=== PATIENT | female | born 1995 | race Caucasian/White ===

== ENCOUNTER 2016-06-29 16:57 | Emergency (ER) | payer OTHER ==
[~2016-06-29] VITALS: Ht 170.2 cm; Wt 58.8 kg
[2016-06-29 17:19] VITALS: TEMP 36.9; Ht 170.2 cm; Wt 58.8 kg
[2016-06-29] MEDS ORDERED: POLY335019 PO (17:53)
[2016-06-29] MEDS ORDERED: LISD60CA PO (17:53)
[2016-06-29] MEDS ORDERED: VENL75CA PO (17:53)
--- NOTE | 2016-06-29 18:03 | EMERGENCY ROOM VISIT NOTE ---
ED Visit Note First contact with patient: 17:41 CHIEF COMPLAINT: Canyon rash on hand HISTORY OF PRESENT ILLNESS: This 20-year-old female patient presents to the emergency department ambulatory complaining of a rust colored rash on her left palm. The patient states that this morning after an education class, she was walking to her next class and noticed an orange rash on her left hand. She states that she initially tried to wash the hand but this did not resolve it. She reports some burning in the area, but denies any true pain. She denies any itching. She denies any new medications or environmental exposures. She states that she researched this online and is concerned about liver failure. REVIEW OF SYSTEMS: A review of systems was performed with positives and pertinent negatives listed in the history of present illness. All other systems were reviewed and are negative. ALLERGIES: Metoclopramide MEDICATIONS: Vyvanse, Effexor, MiraLAX PMH: No significant past medical history. SOCIAL HISTORY: The patient is a [employer] student and lives locally with roommates. PHYSICAL EXAM: VITALS: Vitals are noted on the nurse's note and reviewed by myself. Vital signs stable. GENERAL: His is a 20-year-old female, in no acute distress, nondiaphoretic, well -developed well-nourished. SKIN: There is a small amount of faint orange coloring on the medial aspect of the left palm. EMERGENCY DEPARTMENT COURSE: The patient was evaluated as above. The Canyon area in color was removed easily with an alcohol pad. The patient was reassured. She was discharged home in good condition. DIAGNOSIS: Marker on hand Current/Historical Medications Scheduled Lisdexamfetamine Dimesylate (Vyvanse), 60 MG PO DAILY Polyethylene Glycol 3350 (Miralax), 17 GM PO DAILY Venlafaxine Hcl (Effexor Xr), 225 MG PO DAILY Allergies Coded Allergies: Metoclopramide (Unverified Adverse Reaction, Severe, HIVES, 06/29/16) Vital Signs Date Time Temp Pulse Resp B/P Pulse Ox O2 Delivery O2 Flow Rate FiO2 06/29/16 18:06 71 16 123/64 99 Room Air 06/29/16 17:19 36.9 117 16 124/80 98 Departure Information Impression Primary Impression: Discoloration of skin of hand Dispostion Home / Self-Care Condition GOOD Referrals No Doctor, Assigned (PCP) Patient Instructions My [facility] Additional Instructions Follow-up with [facility] for any further concerns.
[2016-06-29 18:06] VITALS: BP 123/64; PULSE 71; O2SAT 99
== END 2016-06-29 18:09 | disposition home or self-care (01) ==
LOC: C.EDB 16:59 → C.EDD 18:09
DX: R23.8 Other skin changes (principal); Z79.899 Other long term (current) drug therapy

== ENCOUNTER 2017-06-25 17:06 | Emergency (ER) | payer OTHER ==
[~2017-06-25] VITALS: Ht 170.2 cm; Wt 81.2 kg
[~2017-06-25 17:06] MED LIST: LISD60CA PO; POLY335019 PO; VENL75CA PO
[2017-06-25 17:08] VITALS: TEMP 36.4; Ht 170.2 cm; Wt 81.2 kg
[2017-06-25] MEDS ORDERED: DULO60CA44 PO (17:44)
[2017-06-25] MEDS ORDERED: STR/80 PO (17:44)
[2017-06-25] MEDS ORDERED: CYM/30 PO (17:44)
[2017-06-25] MEDS ORDERED: DIAZ10TA PO (17:44)
[2017-06-25 17:47] VITALS: O2SAT 100
[2017-06-25 17:50] LABS: BASO % 0.2 %; BASO ABS # 0.01 K/uL (0-0.2); EOS % 1.5 %; EOS ABS # 0.09 K/uL (0-0.5); HEMATOCRIT 41.7 % (37-47); IG# 0.02 K/uL (0.00-0.02); LYMPH % 30.2 %; MEAN CELL VOLUME 89.7 fL (80-100); MEAN CORPUSCULAR HEMOGLOBIN 30.1 pg (25-34); MEAN CORPUSCULAR HGB CONC 33.6 g/dl (32-36); MEAN PLATELET VOLUME 9.8 fL (7.4-10.4); MONO % 8.9 %; MONO ABS # 0.53 K/uL (0.11-0.59); NEUT % 58.9 %; NEUT ABS # 3.51 K/uL (1.4-6.5); PLATELET COUNT 442 K/uL (130-400); RED CELL DISTRIBUTION WIDTH CV 11.9 % (11.5-14.5); RED CELL DISTRIBUTION WIDTH SD 38.5 fL (36.4-46.3); WHITE BLOOD COUNT 5.96 K/uL (4.8-10.8)
[2017-06-25 18:01] LABS: PTT PATIENT 26.2 SECONDS (21.0-31.0)
[2017-06-25 18:16] LABS: CALCIUM 8.9 mg/dl (8.5-10.1); CREATININE 0.8 mg/dl (0.60-1.20); POTASSIUM 3.8 mmol/L (3.5-5.1)
[2017-06-25 18:25] LABS: ALBUMIN 3.6 gm/dl (3.4-5.0); ALKALINE PHOSPHATASE 77 U/L (45-117); ALT/SGPT 24 U/L (12-78); AST/SGOT 15 U/L (15-37); TOTAL PROTEIN 7.5 gm/dl (6.4-8.2)
--- NOTE | 2017-06-25 19:26 | EMERGENCY ROOM VISIT NOTE ---
History Report prepared by Miles: Josephine Parham Under the Supervision of: Dr. Kulwant Benitez M.D. First contact with patient: 17:18 Chief Complaint: ANXIETY Stated Complaint: PANIC ATTACK, SOB History of Present Illness The patient is a 21 year old female who presents to the Emergency Room with complaints of daily panic attacks with associated SOB since August 2016. She reports that she feels like she is "suffocating" and she wants it to stop. The patient denies any leg swelling or leg pain, homicidal or suicidal thoughts, any fertility drug use, or control pill use. The patient has been "self medicating" with alcohol and has about 10 drinks a day. Unless her and her veins. She drank about a liter of wine this morning. She currently takes 10 mg of Valium 4 times a day and is on Cymbalta 90 mg and Strattera. The patient denies any homicidal and suicidal thoughts. She notes that she spends most of her time in doors. She states she used to be anorexic but has recently gained over 40 pounds since getting in December. She states her symptoms started in August when she developed an influenza-like illness and never quite recovered fully. She says at the time she was worked up for possible on her lung but only had a x-ray. She states that her anxiety was worsened when she got in December and had opposition from her 's family. Source of History: patient Onset: August, Position: other (global ) Symptom Intensity: severe Quality: other (suffocating) Timing: intermittent Modifying Factors (Relieving): other (alcohol) Associated Symptoms: + SOB Note: No leg swelling, leg pain, homicidal or suicidal thoughts, fertility drug use, or control methods Review of Systems See HPI for pertinent positives & negatives. A total of 10 systems reviewed and were otherwise negative. Past Medical & Surgical Medical Problems: (1) Generalized anxiety disorder Family History Patient reports no known family medical history. Social History Smoking Status: Never Smoker Current/Historical Medications Scheduled Atomoxetine (Strattera), 80 MG PO QAM Diazepam (Valium), 10 MG PO QID Duloxetine HCl (Cymbalta), 30 MG PO DAILY Duloxetine Hcl (Cymbalta), 60 MG PO DAILY Polyethylene Glycol 3350 (Miralax), 17 GM PO DAILY Allergies Coded Allergies: Metoclopramide (Unverified Adverse Reaction, Severe, HIVES, 06/25/17) Physical Exam Vital Signs Date Time Temp Pulse Resp B/P (MAP) Pulse Ox O2 Delivery O2 Flow Rate FiO2 06/25/17 21:50 95 16 142/93 100 Room Air 06/25/17 20:30 100 20 129/92 99 06/25/17 18:23 106 06/25/17 17:47 100 Room Air 06/25/17 17:47 111 24 100 Room Air 06/25/17 17:08 36.4 147 22 116/79 99 Room Air Physical Exam Constitutional: Vital signs reviewed. Eyes: Pupils are equal round reactive to light. Conjunctiva are noninjected. ENT: Pharynx is clear without erythema or exudate. Mucous membranes are moist. Neck supple without meningeal signs. Respiratory: Clear to auscultation bilaterally. Breath sounds are equal bilaterally. Cardiovascular: Tachycardic and regular rhythm. No rubs or gallops. GI: Soft, nondistended and nontender. Bowel sounds are present. Musculoskeletal: No peripheral edema. No lower extremity tenderness. Integumentary: No cyanosis. Neurological: The patient is awake and alert. No focal deficits. Psychiatric: Extremely anxious Medical Decision & Procedures ER Provider Diagnostic Interpretation: Radiology results as stated below per my review and the radiologist's interpretation: CHEST 2 VIEWS ROUTINE CLINICAL HISTORY: Shortness of breath. Evaluate for pneumonia. COMPARISON STUDY: No previous studies for comparison. FINDINGS: Obscuration of the right heart border is due to pectus excavatum deformity. Lung volumes are normal. There is no pneumothorax or pleural effusion. There is no consolidation to suggest pneumonia. There is mild leftward curvature of the upper thoracic spine. Pulmonary vascularity is normal. Cardiac size is normal. IMPRESSION: 1. No acute cardiopulmonary findings. 2. Pectus excavatum deformity. Electronically signed by: Mode Butler M.D. 06/25/2017 7:34 PM Dictated Date/Time: 06/25/2017 7:33 PM Laboratory Results 06/25/17 17:37 Red Blood Count 4.65, Mean Corpuscular Volume 89.7, Mean Corpuscular Hemoglobin 30.1, Mean Corpuscular Hemoglobin Concent 33.6, Mean Platelet Volume 9.8, Neutrophils (%) (Auto) 58.9, Lymphocytes (%) (Auto) 30.2, Monocytes (%) (Auto) 8.9, Eosinophils (%) (Auto) 1.5, Basophils (%) (Auto) 0.2, Neutrophils # (Auto) 3.51, Lymphocytes # (Auto) 1.80, Monocytes # (Auto) 0.53, Eosinophils # (Auto) 0.09, Basophils # (Auto) 0.01 06/25/17 17:37 Test 06/25/17 00:00 06/25/17 17:37 06/25/17 17:41 06/25/17 18:26 Urine Test NEG (NEG) White Blood Count 5.96 K/uL (4.8-10.8) Red Blood Count 4.65 M/uL (4.2-5.4) Hemoglobin 14.0 g/dL (12.0-16.0) Hematocrit 41.7 % (37-47) Mean Corpuscular Volume 89.7 fL (80-100) Mean Corpuscular Hemoglobin 30.1 pg (25-34) Mean Corpuscular Hemoglobin Concent 33.6 g/dl (32-36) Platelet Count 442 K/uL (130-400) Mean Platelet Volume 9.8 fL (7.4-10.4) Neutrophils (%) (Auto) 58.9 % Lymphocytes (%) (Auto) 30.2 % Monocytes (%) (Auto) 8.9 % Eosinophils (%) (Auto) 1.5 % Basophils (%) (Auto) 0.2 % Neutrophils # (Auto) 3.51 K/uL (1.4-6.5) Lymphocytes # (Auto) 1.80 K/uL (1.2-3.4) Monocytes # (Auto) 0.53 K/uL (0.11-0.59) Eosinophils # (Auto) 0.09 K/uL (0-0.5) Basophils # (Auto) 0.01 K/uL (0-0.2) RDW Standard Deviation 38.5 fL (36.4-46.3) RDW Coefficient of Variation 11.9 % (11.5-14.5) Immature Granulocyte % (Auto) 0.3 % Immature Granulocyte # (Auto) 0.02 K/uL (0.00-0.02) Prothrombin Time 10.2 SECONDS (9.0-12.0) Prothromb Time International Ratio 1.0 (0.9-1.1) Activated Partial Thromboplast Time 26.2 SECONDS (21.0-31.0) Partial Thromboplastin Ratio 1.0 Anion Gap 6.0 mmol/L (3-11) Est Creatinine Clear Calc Drug Dose 122.0 ml/min Estimated GFR () 122.2 Estimated GFR (Non- 105.4 BUN/Creatinine Ratio 9.0 (10-20) Calcium Level 8.9 mg/dl (8.5-10.1) Total Bilirubin 0.2 mg/dl (0.2-1) Direct Bilirubin < 0.1 mg/dl (0-0.2) Aspartate Amino Transf (AST/SGOT) 15 U/L (15-37) Alanine Aminotransferase (ALT/SGPT) 24 U/L (12-78) Alkaline Phosphatase 77 U/L (45-117) Total Protein 7.5 gm/dl (6.4-8.2) Albumin 3.6 gm/dl (3.4-5.0) Thyroid Stimulating Hormone (TSH) 5.610 uIu/ml (0.300-4.500) Free Thyroxine 0.87 ng/dl (0.80-1.60) Salicylates Level 1.7 mg/dl (2.8-20) Acetaminophen Level < 2 ug/ml (10-30) Ethyl Alcohol mg/dL < 3.0 mg/dl (0-3) Bedside D-Dimer 154 ng/mlFEU (0-450) Bedside Troponin I < 0.030 ng/ml (0-0.045) Urine Opiates Screen NEG (NEG) Urine Methadone, Qualitative NEG (NEG) Urine Barbiturates NEG (NEG) Urine Phencyclidine (PCP) Level NEG (NEG) Ur Amphetamine/Methamphetamine NEG (NEG) MDMA (Ecstasy) Screen NEG (NEG) Urine Benzodiazepines Screen POS (NEG) Urine Cocaine Metabolite NEG (NEG) Urine Marijuana (THC) NEG (NEG) Laboratory results as reviewed by me. ECG Indication: SOB/dyspnea Rate (beats per minute): 116 Rhythm: sinus tachycardia Findings: no acute ischemic change, no ectopy Comparison ECG Date: no prior available Change: Patient's electrocardiogram per my interpretation. ED Course 1725: The patient was evaluated in room B8. A complete history and physical exam was performed. 1929: I discussed her tests results with her. She is less anxious and out of breath. 2144:I talked with Dr. Dangelo of psychiatry. He will try to get a hold of her tomorrow to adjust medications and get her in for an appointment on Tuesday. 2145: I reassessed the patient at this time. She appears much better. I also educated about the risk of using alcohol and benzodiazepines. Upon reevaluation , the patient appeared to have improvement of her symptoms. I discussed tonyvonne' s findings with her. She verbalized agreement of the treatment plan. She was discharged home. Medical Decision This is a 21-year-old female presents with shortness of breath. Differential diagnosis includes generalized anxiety, panic attack, pulmonary embolism, pleural effusion, cardiac, anemia. I did perform a limited focused review of portions of the patient's old chart on the electronic medical record. The patient has had no recent pertinent visits to this hospital. I did evaluate the patient as noted above. The patient is presenting with panic attacks that manifest as shortness of breath since August of last year. She states she suffers them every day. She did call her psychiatrist today who recommended she be evaluated in the ED. She denies any chest pain. She does not have any known risk factors for pulmonary embolism. IV access was established. The patient was placed on a continuous manager monitoring. I did order and personally review the patient's 12-lead EKG and chest x-ray as described above. EKG and chest x-ray are unremarkable. I did order and review the patient's blood work as noted in the electronic medical record. D-dimer and troponin are negative. Given the low probability of pulmonary embolism I did not feel a CT angiography of the chest is indicated. Her TSH was slightly elevated but she had a normal free T4. I did discuss the test results with the patient. On reassessment she is feeling better and appears much less anxious and dyspneic. I did have the mental health case work aide evaluate her. She was not felt to be a candidate for inpatient care. I did discuss the case with Dr. Dangelo who is her psychiatrist. He stated that he would call her tomorrow and arrange for an appointment on Tuesday as well as adjustment to her medications. She was happy with this plan and discharged in good condition. Medication Reconcilliation Current Medication List: was personally reviewed by me Blood Pressure Screening Patient's blood pressure: Normal blood pressure Blood pressure disposition: Did not require urgent referral Consults Time Called: 2139 Consulting Physician: Dr. Dangelo, Psychiatry Returned Call: 2144 He will try to get a hold of her tomorrow to adjust medications and get her in for an appointment on Tuesday. Impression Primary Impression: Generalized anxiety disorder Additional Impression: Panic attacks Scribe Attestation The scribe's documentation has been prepared under my direct and personally reviewed by me in its entirety. I confirm that the note above accurately reflects all work, treatment, procedures, and medical decision making performed by me. Departure Information Dispostion Home / Self-Care Referrals [facility] (PCP) Forms HOME CARE DOCUMENTATION FORM, IMPORTANT VISIT INFORMATION Patient Instructions My [facility] Additional Instructions You have been examined and treated today on an emergency basis only. This is not a substitute for, or an effort to provide, complete comprehensive medical care. It is impossible to recognize and treat all injuries or illnesses in a single emergency department visit. It is therefore important that you follow up closely with your physician. Call as soon as possible for an appointment. Return for worsening symptoms or if you develop chest pain, thoughts of hurting yourself, or any other concerning symptoms. Do not drink alcohol while on Valium. Problem Qualifiers
--- NOTE | 2017-06-25 19:35 | DIAGNOSTIC IMAGING REPORT ---
CHEST 2 VIEWS ROUTINE CLINICAL HISTORY: Shortness of breath. Evaluate for pneumonia. COMPARISON STUDY: No previous studies for comparison. FINDINGS: Obscuration of the right heart border is due to pectus excavatum deformity. Lung volumes are normal. There is no pneumothorax or pleural effusion. There is no consolidation to suggest pneumonia. There is mild leftward curvature of the upper thoracic spine. Pulmonary vascularity is normal. Cardiac size is normal. IMPRESSION: 1. No acute cardiopulmonary findings. 2. Pectus excavatum deformity. Electronically signed by: Mode Butler M.D. 06/25/2017 7:34 PM Dictated Date/Time: 06/25/2017 7:33 PM
[2017-06-25 21:50] VITALS: BP 142/93; PULSE 95; O2SAT 100
== END 2017-06-25 21:58 | disposition home or self-care (01) ==
LOC: C.EDB 17:07 → C.EDA 21:58
DX: F41.1 Generalized anxiety disorder (principal); F41.0 Panic disorder [episodic paroxysmal anxiety]; R06.02 Shortness of breath; R00.0 Tachycardia, unspecified; Z79.899 Other long term (current) drug therapy

== ENCOUNTER 2017-09-21 12:15 | Emergency (ER) | payer OTHER ==
[~2017-09-21] VITALS: Ht 170.2 cm; Wt 79.6 kg
[~2017-09-21 12:15] MED LIST changes: +CYM/30 PO; +DIAZ10TA PO; +DULO60CA44 PO; -LISD60CA PO; +STR/80 PO; -VENL75CA PO
[2017-09-21 12:20] VITALS: TEMP 36.9; Ht 170.2 cm; Wt 79.6 kg
[2017-09-21] MEDS ORDERED: NRN400 PO (13:10)
[2017-09-21] MEDS ORDERED: CYM/60 PO (13:10)
[2017-09-21 13:15] LABS: BASO % 0.1 %; BASO ABS # 0.01 K/uL (0-0.2); EOS % 2.4 %; EOS ABS # 0.22 K/uL (0-0.5); HEMATOCRIT 40.1 % (37-47); HEMOGLOBIN 13.8 g/dL (12.0-16.0); IG# 0.02 K/uL (0.00-0.02); LYMPH % 20.5 %; LYMPH ABS # 1.85 K/uL (1.2-3.4); MEAN CELL VOLUME 85.7 fL (80-100); MEAN CORPUSCULAR HEMOGLOBIN 29.5 pg (25-34); MEAN CORPUSCULAR HGB CONC 34.4 g/dl (32-36); MEAN PLATELET VOLUME 10.3 fL (7.4-10.4); MONO ABS # 0.54 K/uL (0.11-0.59); NEUT % 70.8 %; NEUT ABS # 6.39 K/uL (1.4-6.5); PLATELET COUNT 431 K/uL (130-400); RED CELL DISTRIBUTION WIDTH CV 12.8 % (11.5-14.5); RED CELL DISTRIBUTION WIDTH SD 39.8 fL (36.4-46.3); WHITE BLOOD COUNT 9.03 K/uL (4.8-10.8)
[2017-09-21 13:20] LABS: CALCIUM 9.5 mg/dl (8.5-10.1); CREATININE 0.87 mg/dl (0.60-1.20); POTASSIUM 3.5 mmol/L (3.5-5.1)
--- NOTE | 2017-09-21 13:51 | EMERGENCY ROOM VISIT NOTE ---
History First contact with patient: 12:25 Chief Complaint: OTHER COMPLAINT Stated Complaint: 5 WKS , NEG URINE TEST, FLUTTERING HEART History of Present Illness The patient is a 21 year old female who presents to the Emergency Room with complaints of a fluttering sensation of her heart. The patient reports that she took 2 tests 2 days ago and both were positive. She took several more test yesterday and today and they were all negative. The patient states that for the past 18 hours, she has had a fluttering sensation of her heart. She did have some nausea the past 2 mornings. She is unsure when her last menstrual period was, but believes it was at the end of July. She was not trying to get , but states that she was happy when she found out she was . She admits to significant anxiety regarding the possibility of her not being . She has had insomnia for the past 2 nights. She denies any previous pregnancies. She contacted her psychiatrist when she found that she was and he recommended stopping the gabapentin. She has been weaning off this medication. She does take Cymbalta and was recommended to continue taking this. She also started taking a vitamin. She denies abdominal pain or vaginal bleeding. Review of Systems A complete 10 point review of systems was reviewed with the patient with pertinent positives and negatives as per history of present illness. All else were negative. Past Medical/Surgical History Medical Problems: (1) Generalized anxiety disorder Family History Patient reports no known family medical history. Social History Smoking Status: Never Smoker Alcohol Use: none Marital Status: Housing Status: lives with significant other Occupation Status: employed Current/Historical Medications Scheduled Duloxetine HCl (Cymbalta), 2 CAP PO DAILY Gabapentin (Gabapentin), 2 TAB PO BID Polyethylene Glycol 3350 (Miralax), 17 GM PO DAILY Physical Exam Vital Signs Date Time Temp Pulse Resp B/P (MAP) Pulse Ox O2 Delivery O2 Flow Rate FiO2 09/21/17 14:01 101 16 124/82 100 09/21/17 12:20 36.9 85 20 134/96 100 Room Air Physical Exam VITALS: Vitals are noted on the nurse's note and reviewed by myself. Vital signs stable. GENERAL: This is a 21-year-old female, in no acute distress, nondiaphoretic, well-developed well-nourished. SKIN: The skin was without rashes, erythema, edema, or bruising. HEAD: Normocephalic atraumatic. EARS: External auditory canals clear, tympanic membranes pearly hernández without erythema or effusion bilaterally. EYES: Pupils equal round and reactive to light and accommodation. Extraocular movements intact. MOUTH: Mucous membranes moist. Tonsils are not enlarged. Pharynx without erythema or exudate. NECK: Supple without nuchal rigidity. No lymphadenopathy. HEART: Regular rate and rhythm without murmurs gallops or rubs. LUNGS: Clear to auscultation bilaterally without wheezes, rales or rhonchi. ABDOMEN: Positive bowel sounds x 4. Soft, nontender to palpation. NEURO: Patient was alert and oriented to person place and time. Medical Decision & Procedures Laboratory Results 09/21/17 12:46 Red Blood Count 4.68, Mean Corpuscular Volume 85.7, Mean Corpuscular Hemoglobin 29.5, Mean Corpuscular Hemoglobin Concent 34.4, Mean Platelet Volume 10.3, Neutrophils (%) (Auto) 70.8, Lymphocytes (%) (Auto) 20.5, Monocytes (%) (Auto) 6.0, Eosinophils (%) (Auto) 2.4, Basophils (%) (Auto) 0.1, Neutrophils # (Auto) 6.39, Lymphocytes # (Auto) 1.85, Monocytes # (Auto) 0.54, Eosinophils # (Auto) 0.22, Basophils # (Auto) 0.01 09/21/17 12:46 Test 09/21/17 12:37 09/21/17 12:46 Urine Test NEG (NEG) White Blood Count 9.03 K/uL (4.8-10.8) Red Blood Count 4.68 M/uL (4.2-5.4) Hemoglobin 13.8 g/dL (12.0-16.0) Hematocrit 40.1 % (37-47) Mean Corpuscular Volume 85.7 fL (80-100) Mean Corpuscular Hemoglobin 29.5 pg (25-34) Mean Corpuscular Hemoglobin Concent 34.4 g/dl (32-36) Platelet Count 431 K/uL (130-400) Mean Platelet Volume 10.3 fL (7.4-10.4) Neutrophils (%) (Auto) 70.8 % Lymphocytes (%) (Auto) 20.5 % Monocytes (%) (Auto) 6.0 % Eosinophils (%) (Auto) 2.4 % Basophils (%) (Auto) 0.1 % Neutrophils # (Auto) 6.39 K/uL (1.4-6.5) Lymphocytes # (Auto) 1.85 K/uL (1.2-3.4) Monocytes # (Auto) 0.54 K/uL (0.11-0.59) Eosinophils # (Auto) 0.22 K/uL (0-0.5) Basophils # (Auto) 0.01 K/uL (0-0.2) RDW Standard Deviation 39.8 fL (36.4-46.3) RDW Coefficient of Variation 12.8 % (11.5-14.5) Immature Granulocyte % (Auto) 0.2 % Immature Granulocyte # (Auto) 0.02 K/uL (0.00-0.02) Anion Gap 6.0 mmol/L (3-11) Est Creatinine Clear Calc Drug Dose 111.1 ml/min Estimated GFR () 110.4 Estimated GFR (Non- 95.2 BUN/Creatinine Ratio 7.3 (10-20) Calcium Level 9.5 mg/dl (8.5-10.1) Thyroid Stimulating Hormone (TSH) 2.300 uIu/ml (0.300-4.500) Human Chorionic Gonadotropin, Quant < 1 mIU/mL ECG Per My Interpretation Indication: palpitations Rate (beats per minute): 128 Rhythm: sinus tachycardia Findings: no acute ischemic change, no ectopy Change: no significant change Medical Decision Differential diagnosis includes arrhythmia, anxiety, hyperthyroidism, among others. The patient was evaluated as above. She presents with palpitations. She admits to being very anxious, because she took 2 tests which were positive and multiple tests which have been negative since then. Labs show no leukocytosis, anemia or concerning electrolyte abnormality. TSH indicates a euthyroid state. EKG shows a sinus tachycardia. Quantitative beta- hCG was less than 1. The patient is not . She was informed of this and advised to follow-up with SENIOR CONSULTING MANAGER if she is trying to become . She was reassured by this information. She verbalized understanding of my assessment and treatment plan and was discharged home in good condition. Medication Reconcilliation Current Medication List: was personally reviewed by me Blood Pressure Screening Patient's blood pressure: Normal blood pressure Impression Primary Impression: Palpitations Departure Information Dispostion Home / Self-Care Condition GOOD Referrals No Doctor, Assigned (PCP) Kelsey Perez M.D. Patient Instructions My [facility] Additional Instructions Your blood test today was negative. If you are planning on becoming , you should be taking a vitamin every day. You may follow-up with SENIOR CONSULTING MANAGER in the office. Call for appointment. Return to the emergency department with any new/concerning symptoms or concerns.
[2017-09-21 14:01] VITALS: BP 124/82; PULSE 101; O2SAT 100
== END 2017-09-21 14:03 | disposition home or self-care (01) ==
LOC: C.EDB 12:19 → C.EDA 14:03
DX: R00.2 Palpitations (principal); F41.1 Generalized anxiety disorder; Z79.899 Other long term (current) drug therapy